=== PATIENT | male | born 1975 | race Two or more races ===

== ENCOUNTER 2024-04-05 13:31 | Emergency (ER) | payer BC, OTHER ==
[~2024-04-05] VITALS: Ht 188 cm; Wt 111.4 kg
[2024-04-05 13:35] VITALS: O2SAT 99
[2024-04-05] MEDS ORDERED: IOHEXOL 350 MG/ML 100 ML VIAL ONE (14:23)
[2024-04-05] MEDS ORDERED: SODIUM CHLORIDE 0.9% 100 ML ONE (14:24)
[2024-04-05 15:01] LABS: ANION GAP 7 mmol/L (8-16); CALCIUM, TOTAL 9.1 mg/dL (8.8-10.5); CARBON DIOXIDE 31 mmol/L (22-29); CHLORIDE 103 mmol/L (98-107); CREATININE 1.17 mg/dL (0.60-1.30); GLOMERULAR FILTR. RATE CALC > 60 mL/min (>60); GLUCOSE,RANDOM 86 mg/dL (70-110); POTASSIUM 3.6 mmol/L (3.5-5.1); PROTHROMBIN TIME 10.1 SEC (9.4-11.6); SODIUM SERUM 141 mmol/L (136-145); UREA NITROGEN, BLOOD 17 mg/dL (7-18)
[2024-04-05 15:05] LABS: BASOPHILS % (AUTO) 0.5 % (0.0-2.0); EOSINOPHILS % (AUTO) 2.4 % (1.0-6.0); HEMATOCRIT 50.1 % (41-53); HEMOGLOBIN 16.8 g/dL (13.5-17.5); LYMPHOCYTES # (AUTO) 3.8 K/uL (1.0-4.8); LYMPHOCYTES % (AUTO) 53.3 % (22.0-44.0); MEAN CORPUSCULAR HGB CONC 33.5 G/dL (31.0-37.0); MEAN CORPUSCULAR VOLUME 101 fL (80-100); MONOCYTES # (AUTO) 0.6 K/uL (0.1-1.0); MONOCYTES % (AUTO) 8.4 % (2.0-9.0); NEUTROPHILS # (AUTO) 2.5 K/uL (1.8-7.7); NEUTROPHILS % (AUTO) 35.4 % (40.0-70.0); PLATELET COUNT (AUTO) 246 K/uL (150-450); RED BLOOD CELL COUNT(AUTO) 4.95 MIL/uL (4.50-5.90); RED CELL DISTRIBUTION WIDTH 12.6 % (11.5-14.5); WHITE BLOOD COUNT (AUTO) 7.1 K/uL (4.5-11.0)
[2024-04-05 15:07] LABS: ALANINE AMINOTRANSFERASE 63 U/L (12-78); ALBUMIN 4.2 g/dL (3.4-5.0); ALKALINE PHOSPHATASE 52 U/L (46-116); ASPARTATE AMINOTRANSFERASE 30 U/L (15-37); BILIRUBIN,TOTAL 0.6 mg/dL (0.1-1.0); TOTAL PROTEIN, SERUM 7.5 g/dL (6.4-8.2)
[2024-04-05 15:11] LABS: RBC MORPHOLOGY COMMENT ABNORMAL RBC MORPH
[2024-04-05] MEDS: PERTUSS(ACELL),DIPH,TET/PF 0.5 ML SYRINGE [ADULT] IM. ONE (15:11)
[2024-04-05] MEDS: CeFAZolin 2 GM/DEXTROSE 50 ML IV ONE (15:11)
[2024-04-05] MEDS: ONDANSETRON HCL 4 MG/2 ML VIAL IVP ONE (16:16)
[2024-04-05] MEDS: MORPHINE SULFATE 4 MG/ML SYRINGE IVP ONE (16:17)
[2024-04-05] MEDS: SODIUM CHLORIDE 0.9% 250 ML IRRIG SOLUTION BOTTLE IRRIG ONE (19:34)
[2024-04-05] MEDS: LIDOCAINE 1%/EPI 1:200,000/PF 10 ML VIAL ID ONE (19:35)
[2024-04-05] MEDS: BACITRACIN 0.9 GM PACKET OINTMENT TP ONE (19:35)
[2024-04-05 21:12] VITALS: BP 156/102; PULSE 98; RESP 19; TEMP 98; O2SAT 100
[2024-04-05] MEDS ORDERED: HYDR-4062 PO (21:13)
[2024-04-05] MEDS ORDERED: CEPH-558 PO (21:13)
[2024-04-05] MEDS ORDERED: IBUP-1492 PO (21:13)
== END 2024-04-05 22:18 | disposition home or self-care (01) ==
LOC: EMS 13:31
DX: S81.831A Puncture wound without foreign body, right lower leg, initial encounter (principal); S71.031A Puncture wound without foreign body, right hip, initial encounter; Z23 Encounter for immunization; W32.0XXA Accidental handgun discharge, initial encounter; Y93.89 Activity, other specified; Y92.89 Other specified places as the place of occurrence of the external cause; Y99.0 Civilian activity done for income or pay
CPT/HCPCS: 99285; 96365; 73701; 96375; 80053; 85025; 85610; 85730; 86850; 86900; 86901; 36415; 73502; 73552; 90715; 90471; 12001; Q9967; J3490; J2270; J2405; J7050; J0690